=== PATIENT | male | born 1950 | race Caucasian/White ===

== ENCOUNTER 2017-02-02 12:09 | Day surgery (SDC) | payer MEDICARE, OTHER ==
[2017-02-02] MEDS ORDERED: LIDOCAINE 2% MDV (20MG/ML) 20ML VIAL IV ONE (14:00)
[2017-02-02] MEDS ORDERED: MIDAZOLAM HCL 2MG/2ML VIAL IV ONE (14:00)
[2017-02-02] MEDS ORDERED: PROPOFOL 10 MG/ML VIAL IV ONE (14:00)
--- NOTE | 2017-02-08 13:21 | Operative Note ---
DATE OF SURGERY: 02/02/2017 OPERATION: COLONOSCOPY with cold forceps polypectomy. PREOPERATIVE DIAGNOSIS: Personal history of colon polyps. POSTOPERATIVE DIAGNOSES: 1. Diminutive ascending colon polyp, status post cold forceps removal. 2. [id number] sigmoid diverticulosis. PROCEDURE: After informed consent was obtained from the patient, he was placed in the left lateral decubitus position in the endoscopy suite, sedated and monitored by the department of anesthesia. Digital rectal exam was unremarkable. A well-lubricated [id number] colonoscope was inserted into the rectum and advanced to the cecum. Preparation quality was good to excellent. The cecum, ileocecal valve, and appendiceal orifice were unremarkable. The ascending colon revealed a diminutive polyp removed with a cold forceps. The remainder of the ascending colon, transverse colon, and descending colon were also unremarkable. No polyps, mass lesions, diverticula, or inflammation seen. The sigmoid colon demonstrated [id number] diverticular changes. No inflammation, polyps, or mass lesions were seen. The rectum was unremarkable in forward and in J-turn views. The endoscope was straightened, the rectal ampulla deflated, and the endoscope was removed. RECOMMENDATIONS: I suggest the patient follow a high-fiber diet. She should undergo repeat exam in 5 years. As always, thank you for allowing me to participate in the healthcare of your patients. CC: Dr. Josh LUTHER
== END 2017-02-02 14:06 | disposition home or self-care (01) ==
LOC: HOP 12:09
PROVIDERS: ATTEND Internal Medicine Gastroenterology
DX: Z12.11 Encounter for screening for malignant neoplasm of colon (principal); Z86.010 Personal history of colon polyps; K63.5 Polyp of colon; R25.1 Tremor, unspecified